=== PATIENT | female | born 1960 | race Two or more races ===

== ENCOUNTER 2020-03-03 03:28 | Inpatient (IN) | payer OTHER ==
[2020-03-03] MEDS ORDERED: ACETAMINOPHEN 325 MG TABLET PO ONE (05:03)
[2020-03-03 05:48] LABS: ABSOLUTE LYMPHOCYTES (AUTO) 1.1 10^3/uL (0.5-4.7); ABSOLUTE MONOCYTES (AUTO) 0.2 10^3/uL (0.1-1.4); ABSOLUTE NEUT (AUTO) 2.9 10^3/uL (1.7-8.2); APPEARANCE,URINE CLEAR; BASOPHILS % (AUTO) 0.5 % (0-2); BILIRUBIN,URINE NEGATIVE (NEGATIVE); COLOR,URINE YELLOW; GLUCOSE, URINE >=500 mg/dL (NEGATIVE); HEMATOCRIT 40.9 % (36.0-47.0); HEMOGLOBIN 13.5 g/dL (12.0-15.5); KETONES,URINE TRACE mg/dL (NEGATIVE); LEUKOCYTE ESTERASE,URINE NEGATIVE (NEGATIVE); LYMPHOCYTES % (AUTO) 26.7 % (13-45); MEAN CORPUSCULAR HEMOGLOBIN 29.5 pg (27.0-33.4); MEAN CORPUSCULAR HGB CONC 33.1 g/dL (32.0-36.0); MEAN CORPUSCULAR VOLUME 89 fl (80-97); MONOCYTES % (AUTO) 4.1 % (3-13); NITRITE,URINE NEGATIVE (NEGATIVE); PLATELET COUNT 211 10^3/uL (150-450); PROTEIN,URINE 100 mg/dL (NEGATIVE); RED BLOOD COUNT 4.58 10^6/uL (3.72-5.28); SEGMENTED NEUTROPHILS % (AUTO) 68.7 % (42-78); TOTAL CELLS COUNTED % (AUTO) 100 %; URINE SPECIFIC GRAVITY 1.032; UROBILINOGEN,URINE NEGATIVE mg/dL (<2.0); WHITE BLOOD COUNT 4.2 10^3/uL (4.0-10.5)
[2020-03-03 06:08] LABS: ALBUMIN 4.5 g/dL (3.5-5.0); ALKALINE PHOSPHATASE 125 U/L (38-126); ANION GAP 16 (5-19); ASPARTATE AMINO TRANSFERASE 35 U/L (14-36); BILIRUBIN,DIRECT 0.2 mg/dL (0.0-0.4); BILIRUBIN,TOTAL 0.4 mg/dL (0.2-1.3); BLOOD UREA NITROGEN 14 mg/dL (7-20); CALCIUM 10.1 mg/dL (8.4-10.2); CARBON DIOXIDE 26 mmol/L (22-30); CHLORIDE 87 mmol/L (98-107); POTASSIUM 4.7 mmol/L (3.6-5.0); TOTAL PROTEIN 8.1 g/dL (6.3-8.2)
[2020-03-03 06:26] LABS: GLUCOSE 454 mg/dL (75-110)
[2020-03-03] MEDS ORDERED: NORMAL SALINE 500 ML IV ONE (10:22)
[2020-03-03] MEDS ORDERED: INSULIN REG, HUMAN 100 UNIT/ML 3 ML VIAL (PYX) IV ONE (10:31)
--- NOTE | 2020-03-03 10:38 | ER Document Report ---
Entered by JESUS EM SCRIBE 03/03/20 0947 Acting as scribe for:SARAHI WILLIS MD ED General - General Chief Complaint: Pain All Over Stated Complaint: BODY ACHES Mode of Arrival: Ambulatory Information source: Patient Notes: This 60 year old female patient with a history of type 2 diabetes mellitus presents to the ED today with complaints of elevated blood glucose readings since 02/28/2020. Patient states that she has been compliant with her Metformin, but she hasn't been following a diabetic diet. She reports a headache and back pain. Denies fever, chills, unexplained weight loss, blurred vision, sore throat, cough, nausea, vomiting, abdominal pain, sick contacts, or known COVID exposure. Patient's O2 saturation via room air on the monitor was 90% and when asked if she was short of breath, patient states "I might be and I just don't know it." TRAVEL OUTSIDE OF THE [place] IN LAST 30 DAYS: No - Related Data Allergies/Adverse Reactions: No Known Allergies Allergy (Verified 01/24/15 19:39) Home Medications: thyroid med, diabetic med, arthritis Past Medical History - General Information source: Patient - Social History Smoking Status: Never Smoker Cigarette use (# per day): No Chew tobacco use (# tins/day): No Smoking Education Provided: No Frequency of alcohol use: None Drug Abuse: None Lives with: Alone Family History: Reviewed & Not Pertinent Patient has suicidal ideation: No Patient has homicidal ideation: No - Past Medical History Cardiac Medical History: Reports: Hx Hypertension, Hx Heart Murmur Endocrine Medical History: Reports: Hx Diabetes Mellitus Type 2, Hx Hy pothyroidism Past Surgical History: Reports: None - Immunizations Hx Diphtheria, Pertussis, Tetanus Vaccination: Yes Review of Systems - Review of Systems Constitutional: See HPI, Other - Elevated BGL. denies: Chills, Fever, Weight loss EENT: See HPI. denies: Blurred vision, Throat pain Cardiovascular: No symptoms reported Respiratory: See HPI. denies: Cough Gastrointestinal: See HPI. denies: Abdominal pain, Nausea, Vomiting Genitourinary: No symptoms reported Female Genitourinary: No symptoms reported Musculoskeletal: See HPI, Back pain Skin: No symptoms reported Hematologic/Lymphatic: No symptoms reported Neurological/Psychological: See HPI, Headaches -: Yes All other systems reviewed and negative Physical Exam - Vital signs Vitals: Temp Pulse Resp BP Pulse Ox 98.4 F 106 H 18 149/84 H 96 03/03/20 03:48 03/03/20 03:48 03/03/20 03:48 03/03/20 03:48 03/03/20 03:48 - General General appearance: Alert In distress: None - HEENT Head: Normocephalic, Atraumatic Eyes: Normal Pupils: PERRL Neck: Normal, Supple - Respiratory Respiratory status: Other - 90% on Room air Breath sounds: Decreased air movement - Diminished breath sounds in the bases, Rales - Dry rales in the bases bilaterally. No: Wheezing - Cardiovascular Rhythm: Regular Heart sounds: Normal auscultation, S1 appreciated, S2 appreciated Murmur: No Friction rub: No Gallop: None auscultated Normal capillary refill: No - Cap refill is delayed, about x3 seconds - Abdominal Inspection: Normal Distension: Distended - Slightly Bowel sounds: Normal Tenderness: Nontender - Abdomen soft Organomegaly: No organomegaly - Back Back: Normal, Nontender - Extremities General upper extremity: Normal inspection General lower extremity: Normal inspection. No: Edema - Neurological Neuro grossly intact: Yes Orientation: AAOx4 [place] Coma Scale Eye Opening: Spontaneous [place] Coma Scale Verbal: Oriented [place] Coma Scale Motor: Obeys Commands [place] Coma Scale Total: 15 - Psychological Associated symptoms: Normal affect, Normal mood - Skin Skin Temperature: Warm Skin Moisture: Dry Skin Color: Normal Course - Re-evaluation Re-evalutation: 03/04/20 15:32 Chart documentation based on yesterday's exam patient resting comfortably. Denies any chest pain requiring O2 support to keep her oxygen saturation above 9091. - Vital Signs Vital signs: Temp Pulse Resp BP Pulse Ox 98.8 F 97 21 H 147/75 H 94 03/04/20 11:36 03/04/20 11:36 03/04/20 11:36 03/04/20 11:36 03/04/20 11:36 03/04/20 15:33 Vital signs stable - Laboratory Result Diagrams: 03/04/20 05:15 03/04/20 05:15 Laboratory results interpreted by me: 03/03/20 03/03/20 03/03/20 05:16 05:16 05:16 ABG pO2 Sodium 129.2 L Chloride 87 L Glucose 454 H* POC Glucose Ferritin 539.00 H Lactate Dehydrogenase C-Reactive Protein 76.4 H Urine Protein 100 H Urine Glucose (UA) >=500 H Urine Ketones TRACE H 03/03/20 03/03/20 03/03/20 10:28 12:05 12:05 ABG pO2 Sodium Chloride Glucose POC Glucose 411 H* 323 H Ferritin Lactate Dehydrogenase 309 H C-Reactive Protein Urine Protein Urine Glucose (UA) Urine Ketones 03/03/20 13:51 ABG pO2 73.1 L Sodium Chloride Glucose POC Glucose Ferritin Lactate Dehydrogenase C-Reactive Protein Urine Protein Urine Glucose (UA) Urine Ketones 03/04/20 15:33 Laboratories essentially within normal limits except blood sugar elevation to 411. Patient had a low sodium at 129. Other markers that sometimes are elevated with with COVID-19 include a ferritin level of 539 C-reactive protein is 76+ - Diagnostic Test Radiology reviewed: Image reviewed, Reports reviewed Radiology results interpreted by me: 03/04/20 15:34 Chest X-Ray 03/03/20 10:19 IMPRESSION: Probable mild vascular congestion although this could represent interstitial pneumonitis. Chest/Abdomen CTA 03/03/20 11:10 IMPRESSION: Diffuse bilateral peripheral alveolar airspace disease suspicious for viral pneumonia as described above. No pulmonary emboli. Chest x-ray shows vascular congestive markings otherwise interstitial pneumo nitis. Chest abdomen CTA shows diffuse bilateral peripheral alveolar airspace disease suspicious for viral pneumonia as described above no pulmonary emboli noted. - EKG Interpretation by Me Additional EKG results interpreted by me: 03/04/20 15:36 Twelve-lead EKG shows normal sinus rhythm rate of 96 left atrial abnormality noted along with left ventricular hypertrophy. Also Q waves noted secondary to left ventricular hypertrophy. Intervals DE QRS and QT interval all within normal limits left axis deviation. No evidence for any acute STEMI. 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
--- NOTE | 2020-03-03 10:52 | RADIOLOGY REPORT (SQ) ---
EXAM DESCRIPTION: CHEST SINGLE VIEW IMAGES COMPLETED DATE/TIME: 03/03/2020 10:41 am REASON FOR STUDY: sobr/low O2 sat COMPARISON: 06/15/2015 EXAM PARAMETERS: NUMBER OF VIEWS: One view. TECHNIQUE: Single frontal radiographic view of the chest acquired. RADIATION DOSE: NA LIMITATIONS: None. FINDINGS: LUNGS AND PLEURA: Bilateral interstitial airspace disease new from prior study. Either ed loulou or pneumonitis. No definite effusions. MEDIASTINUM AND HILAR STRUCTURES: No masses. Contour normal. HEART AND VASCULAR STRUCTURES: Heart size is stable mild central vascular prominence. BONES: No acute findings. HARDWARE: None in the chest. OTHER: No other significant finding. IMPRESSION: Probable mild vascular congestion although this could represent interstitial pneumonitis . TECHNICAL DOCUMENTATION: JOB ID: [id number] 2010 [employer]- All Rights Reserved Reading location - IP/workstation name: [email or web address]
[2020-03-03 11:01] LABS: TROPONIN I 0.016 ng/mL
[2020-03-03 11:51] LABS: C-REACTIVE PROTEIN 76.4 mg/L (<10.0)
[2020-03-03] MEDS ORDERED: MORPHINE SULFATE 10 MG/ML INJ IV ONE (13:14)
[2020-03-03] MEDS ORDERED: ONDANSETRON HCL INJ/PF 4 MG/2 ML SDV IV ONE (13:15)
--- NOTE | 2020-03-03 13:26 | RADIOLOGY REPORT (SQ) ---
EXAM DESCRIPTION: CTA CHEST IMAGES COMPLETED DATE/TIME: 03/03/2020 1:12 pm REASON FOR STUDY: low 02 sats COMPARISON: None. TECHNIQUE: CT scan of the chest performed using helical scanning technique with dynamic intravenous contrast injection. Images reviewed with lung, soft tissue and bone windows. Reconstructed coronal and sagittal MPR images reviewed. Additional 3 dimensional post-processing performed to develop Maximal Intensity Projection images (OR P). All images stored on PACS. All CT scanners at this facility use dose modulation, iterative reconstruction, and/or weight based d osing when appropriate to reduce radiation dose to as low as reasonably achievable (ALARA). [facility]: Dose Right [facility]: CareDose [facility]: Dose Right [facility]: Teradose 4D [facility]: BlackDuck CONTRAST TYPE AND DOSE: contrast/concentration: Isovue 350.00 mmol/ml; Total Contrast Delivered: 63. 0 ml; Total Saline Delivered: 70.0 ml Contrast bolus adequate for pulmonary arteries and aorta. RENAL FUNCTION: BUN 14, creatinine 0.66 RADIATION DOSE: CT Rad equipment meets quality standard of care and radiation dose reduction techniq ues were employed. CTDIvol: 9.9 - 19.3 mGy. DLP: 672 mGy-cm. . LIMITATIONS: None. FINDINGS: LUNGS AND PLEURA: Patchy bilateral mainly peripheral airspace disease suspicious for Covid 19 pneumonia. No effusions. Atypical edema or bacterial pneumonia is thought to be less likely. AORTA AND GREAT VESSELS: No aneurysm. Contrast bolus not optimized for the aorta. HEART: No pericardial effusion. No significant coronary artery calcifications. PULMONARY ARTERIES: No emboli visualized in the main pulmonary arteries or the segmental branches. HILAR AND MEDIASTINAL STRUCTURES: Small hilar nodes are present. Most likely reactive. HARDWARE: None in the chest. UPPER ABDOMEN: No significant findings. Limited exam. THYROID AND OTHER SOFT TISSUES: No masses. No adenopathy. BONES: No acute or significant finding. 3D MIPS: Confirm above findings. OTHER: No other significant finding. IMPRESSION: Diffuse bilateral peripheral alveolar airspace disease suspicious for viral pneumonia as described above. No pulmonary emboli. COMMENT: Commonly reported imaging features of COVID-19 pneumonia are present. Other processes wang ch as influenza pneumonia and organizing pneumonia, as can be seen with drug toxicity and connective tissue disease, can cause a similar imaging pattern. Quality ID # [id number]: Final reports with documentation of one or more dose reduction techniques (e.g., Au tomated exposure control, adjustment of the mA and/or kV according to patient size, use of iterative reconstruction technique) TECHNICAL DOCUMENTATION: JOB ID: [id number] 2010 [employer]- All Rights Reserved Reading location - IP/workstation name: [email or web address]
[2020-03-03 14:09] LABS: ARTERIAL BLOOD BASE EXCESS -1.4 mmol/L; ARTERIAL BLOOD H2CO3 1.19 mmol/L (1.05-1.35); ARTERIAL BLOOD HCO3 23.3 mmol/L (20-24); ARTERIAL BLOOD O2 SATURATION 94.6 % (94-98); ARTERIAL BLOOD PCO2 39.5 mmHg (35-45); ARTERIAL BLOOD PH 7.39 (7.35-7.45); ARTERIAL BLOOD PO2 73.1 mmHg (80-100); ARTERIAL BLOOD TOTAL CO2 24.5 mmol/L (21-25)
[2020-03-03 14:10] LABS: ARTERIAL BLOOD FIO2 2L
[2020-03-03] MEDS ORDERED: ONDANSETRON 4 MG TAB.RAPDIS PO PRN (16:12)
[2020-03-03] MEDS ORDERED: GLUCAGON,HUMAN RECOMB 1 MG INJ IM PRN (16:12)
[2020-03-03] MEDS ORDERED: ACETAMINOPHEN 325 MG TABLET PO PRN (16:12)
[2020-03-03] MEDS ORDERED: IPRATROPIUM/ALBUTEROL 0.5-2.5 MG/3 ML AMPUL NEB PRN (16:12)
[2020-03-03] MEDS ORDERED: DEXTROSE 40% GEL 15 GM TUBE PO PRN ×2 (16:12)
[2020-03-03] MEDS ORDERED: DEXTROSE 50%-WATER 25 GM/50 ML DISP.SYRIN IV PRN ×2 (16:12)
--- NOTE | 2020-03-03 17:01 | PDOC H&P ---
History of Present Illness Admission Date/PCP: 03/03/20 15:52 BHAVIN LI MD Patient complains of: Generalized body ache History of Present Illness: RUDY PEPPER is a 60 year old female, past medical history of diabetes, high blood pressure, hypothyroidism, who came to the ED today due to generalized body ache. Symptoms started about 2 to 3 days prior to admission with generalized body ache. She denied any chest pain, shortness of breath, palpitations. No loss of sense of smell and taste. Minimal cough. Persistence of generalized body ache prompted consult. In the emergency room she was noted to be saturating to 91% on room air and drops to below 88% with ambulation. CBC was unremarkable, CMP showed a sodium of 129 glucose of 454, ferritin 539 which is high, CRP 76.4 which is high, troponin 0.0 16. EKG sinus rhythm no ST elevation. Chest CT showed diffuse bilateral peripheral alveolar airspace disease suspicious for viral pneumonia, no pulmonary emboli. Patient was given IV fluids, dexamethasone, antibiotics in the ED and hospitalist service was called for admission and further management. Past Medical History Cardiac Medical History: Reports: Hypertension, Heart Murmur Pulmonary Medical History: Reports: None EENT Medical History: Reports: None Neurological Medical History: Reports: None Endocrine Medical History: Reports: Diabetes Mellitus Type 2, Hypothyroidism Renal/ Medical History: Reports: None Malignancy Medical History: Reports: None GI Medical History: Reports: None Musculoskeltal Medical History: Reports: None Skin Medical History: Reports: None Psychiatric Medical History: Reports: None Traumatic Medical History: Reports: None Infectious Medical History: Reports: None Past Surgical History Past Surgical History: Reports: None Social History Lives with: Alone Smoking Status: Never Smoker Drugs: None Family History Family History: Reviewed & Not Pertinent Parental Family History Reviewed: Yes Children Family History Reviewed: Yes Sibling(s) Family History Reviewed.: Yes Medication/Allergy Allergies/Adverse Reactions: No Known Allergies Allergy (Verified 01/24/15 19:39) Review of Systems Constitutional: PRESENT: fatigue, weakness Gastrointestinal: ABSENT: abdominal pain, diarrhea Genitourinary: ABSENT: difficulty urinating Neurological: ABSENT: focal weakness Endocrine: ABSENT: heat intolerance Physical Exam Vital Signs: Temp Pulse Resp BP Pulse Ox 98.8 F 103 H 26 H 145/81 H 95 03/03/20 06:39 03/03/20 06:39 03/03/20 14:01 03/03/20 14:00 03/03/20 14:01 Intake & Output 03/02/20 03/03/20 03/04/20 06:59 06:59 06:59 Intake Total 500 Balance 500 Weight 86.5 kg General appearance: PRESENT: cooperative, mild distress Head exam: PRESENT: atraumatic, normocephalic Eye exam: PRESENT: EOMI, PERRLA Mouth exam: PRESENT: moist Neck exam: PRESENT: full ROM Respiratory exam: PRESENT: crackles, symmetrical, unlabored Cardiovascular exam: PRESENT: RRR, +S1, +S2 Pulses: PRESENT: +2 pedal pulses bilateral GI/Abdominal exam: PRESENT: normal bowel sounds, soft. ABSENT: rebound, tenderness Extremities exam: PRESENT: full ROM Musculoskeletal exam: PRESENT: full ROM Neurological exam: PRESENT: alert, awake, oriented to person, oriented to place, oriented to time, oriented to situation Results Laboratory Results: 03/03/20 05:16 03/03/20 05:16 03/03/20 03/03/20 03/03/20 05:16 05:16 05:16 WBC 4.2 RBC 4.58 Hgb 13.5 Hct 40.9 MCV 89 MCH 29.5 MCHC 33.1 RDW 14.0 Plt Count 211 Seg Neutrophils % 68.7 Carbonic Acid HCO3/H2CO3 Ratio ABG pH ABG pCO2 ABG pO2 ABG HCO3 ABG O2 Saturation ABG Base Excess FiO2 Sodium 129.2 L Potassium 4.7 Chloride 87 L Carbon Dioxide 26 Anion Gap 16 BUN 14 Creatinine 0.66 Est GFR ( Amer) > 60 Glucose 454 H* Calcium 10.1 Ferritin Total Bilirubin 0.4 AST 35 Alkaline Phosphatase 125 C-Reactive Protein Total Protein 8.1 Albumin 4.5 Lipase 48.3 Urine Color YELLOW Urine Appearance CLEAR Urine pH 5.0 Ur Specific [place] 1.032 Urine Protein 100 H Urine Glucose (UA) >=500 H Urine Ketones TRACE H Urine Blood NEGATIVE Urine Nitrite NEGATIVE Ur Leukocyte Esterase NEGATIVE Urine WBC (Auto) 0 Urine RBC (Auto) 0 03/03/20 03/03/20 03/03/20 05:16 11:53 13:51 WBC RBC Hgb Hct MCV MCH MCHC RDW Plt Count Seg Neutrophils % Carbonic Acid Cancelled 1.19 HCO3/H2CO3 Ratio Cancelled 19:1 ABG pH Cancelled 7.39 ABG pCO2 Cancelled 39.5 ABG pO2 Cancelled 73.1 L ABG HCO3 Cancelled 23.3 ABG O2 Saturation Cancelled 94.6 ABG Base Excess Cancelled -1.4 FiO2 Cancelled 2L Sodium Potassium Chloride Carbon Dioxide Anion Gap BUN Creatinine Est GFR ( Amer) Glucose Calcium Ferritin 539.00 H Total Bilirubin AST Alkaline Phosphatase C-Reactive Protein 76.4 H Total Protein Albumin Lipase Urine Color Urine Appearance Urine pH Ur Specific [place] Urine Protein Urine Glucose (UA) Urine Ketones Urine Blood Urine Nitrite Ur Leukocyte Esterase Urine WBC (Auto) Urine RBC (Auto) 03/03/20 05:16 Troponin I 0.016 NT-Pro-B Natriuret Pep 38 Impressions: Chest X-Ray 03/03/20 10:19 IMPRESSION: Probable mild vascular congestion although this could represent interstitial pneumonitis. Chest/Abdomen CTA 03/03/20 11:10 IMPRESSION: Diffuse bilateral peripheral alveolar airspace disease suspicious for viral pneumonia as described above. No pulmonary emboli. 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 -No polyuria no polydipsia no polyphagia -Received 10 units of regular insulin in the ED -Trace ketones in urine -Normal anion gap -Started on Lantus and sliding scale insulin -Accu-Cheks -Glycemia protocol -Awaiting A1c. She will likely need another medication besides Metformin on discharge (2) Acute respiratory failure with hypoxia Is this a current diagnosis for this admission?: Yes Plan: -Noted to be saturating 91% on room air in the emergency room -Chest CT showing Bi bilateral groundglass opacities consistent with viral pneumonia -Covid test pending -Continue O2 support -DuoNebs as needed (3) Suspected COVID-19 virus infection Is this a current diagnosis for this admission?: Yes Plan: -Patient came in with generalized body ache - CTA chest showed bilateral groundglass opacities suspicious for Covid pneumonia -Also noted to be hypoxic in the ED -Awaiting Covid test -Empiric antibiotics for bacterial pneumonia -DuoNebs as needed -Vitamin C, vitamin D, zinc -No indication for remdesivir or convalescent plasma yet (4) HTN (hypertension) Qualifiers: Hypertension type: essential hypertension Qualified Code(s): I10 - Essential (primary) hypertension Is this a current diagnosis for this admission?: Yes Plan: -BP145/81 - resumed lisinopril (5) Hypothyroidism Qualifiers: Hypothyroidism type: unspecified Qualified Code(s): E03.9 - Hypothyroidism, unspecified Is this a current diagnosis for this admission?: Yes Plan: - resumed levothyroxine (6) HLD (hyperlipidemia) Qualifiers: Hyperlipidemia type: unspecified Qualified Code(s): E78.5 - Hyperlipidemia, unspecified Is this a current diagnosis for this admission?: Yes Plan: - resumed lipitor - Time Time Spent with patient: 25-34 minutes Medications reviewed and adjusted accordingly: Yes Anticipated Discharge Disposition: Home, Self Care Anticipated Discharge Timeframe: within 48 hours
[2020-03-03] MEDS: ASCORBIC ACID 500 MG TABLET PO SCH (18:14)
[2020-03-03 19:26] LABS: C-REACTIVE PROTEIN 75.3 mg/L (<10.0)
[2020-03-03] MEDS ORDERED: INSULIN GLARGINE,HUM.REC.ANLOG 1,000 UNIT/10 ML VIAL SUBCUT SCH (22:00)
[2020-03-03] MEDS ORDERED: INSULIN GLARGINE,HUM.REC.ANLOG 1,000 UNIT/10 ML VIAL (PYX) SUBCUT ONE (22:13)
[2020-03-03] MEDS: INSULIN LISPRO 100 UNIT/ML 3 ML VIAL SUBCUT SCH (22:16)
[2020-03-03] MEDS: FAMOTIDINE 20 MG TABLET PO SCH (22:16)
[2020-03-03] MEDS: MORPHINE SULFATE 10 MG/ML INJ IV PRN (22:17)
[2020-03-03] MEDS: HEPARIN SOD (PORCINE) 5,000 UNIT/ML 1 ML VIAL SUBCUT SCH (22:18)
[2020-03-03] MEDS: NORMAL SALINE 1000 ML 1,000 ML IV PRN (23:14)
[2020-03-04] MEDS: HEPARIN SOD (PORCINE) 5,000 UNIT/ML 1 ML VIAL SUBCUT SCH ×3 (05:03→21:36)
[2020-03-04] MEDS: LEVOTHYROXINE SODIUM 0.1 MG TABLET PO SCH (05:03)
[2020-03-04 05:46] LABS: ABSOLUTE LYMPHOCYTES (AUTO) 1.7 10^3/uL (0.5-4.7); ABSOLUTE MONOCYTES (AUTO) 0.2 10^3/uL (0.1-1.4); ABSOLUTE NEUT (AUTO) 2.4 10^3/uL (1.7-8.2); BASOPHILS % (AUTO) 0.5 % (0-2); EOSINOPHILS % (AUTO) 0.2 % (0-6); HEMATOCRIT 38.2 % (36.0-47.0); HEMOGLOBIN 12.8 g/dL (12.0-15.5); LYMPHOCYTES % (AUTO) 39.7 % (13-45); MEAN CORPUSCULAR HEMOGLOBIN 29.6 pg (27.0-33.4); MEAN CORPUSCULAR HGB CONC 33.5 g/dL (32.0-36.0); MEAN CORPUSCULAR VOLUME 89 fl (80-97); MONOCYTES % (AUTO) 5.7 % (3-13); PLATELET COUNT 200 10^3/uL (150-450); RED BLOOD COUNT 4.31 10^6/uL (3.72-5.28); RED CELL DISTRIBUTION WIDTH 13.8 % (11.5-14.0); SEGMENTED NEUTROPHILS % (AUTO) 53.9 % (42-78); TOTAL CELLS COUNTED % (AUTO) 100 %; WHITE BLOOD COUNT 4.4 10^3/uL (4.0-10.5)
[2020-03-04 06:16] LABS: ALBUMIN 3.9 g/dL (3.5-5.0); ALKALINE PHOSPHATASE 110 U/L (38-126); ANION GAP 11 (5-19); ASPARTATE AMINO TRANSFERASE 37 U/L (14-36); BILIRUBIN,DIRECT 0.1 mg/dL (0.0-0.4); BILIRUBIN,TOTAL 0.3 mg/dL (0.2-1.3); BLOOD UREA NITROGEN 11 mg/dL (7-20); CALCIUM 9.1 mg/dL (8.4-10.2); CARBON DIOXIDE 25 mmol/L (22-30); CHLORIDE 94 mmol/L (98-107); GLUCOSE 254 mg/dL (75-110); POTASSIUM 4.3 mmol/L (3.6-5.0); TOTAL PROTEIN 7.2 g/dL (6.3-8.2)
[2020-03-04 08:03] LABS: A TYPE INFLUENZA AG NEGATIVE (NEGATIVE); B INFLUENZA AG NEGATIVE (NEGATIVE)
--- NOTE | 2020-03-04 09:50 | EKG REPORT ---
SEVERITY:- ABNORMAL ECG - SINUS RHYTHM PROBABLE LEFT ATRIAL ABNORMALITY PROBABLE LEFT VENTRICULAR HYPERTROPHY ANTERIOR Q WAVES, POSSIBLY DUE TO LVH : Confirmed by: Annette Barajas 04-Mar-2020 09:49:19
[2020-03-04] MEDS: FAMOTIDINE 20 MG TABLET PO SCH ×2 (09:53→21:36)
[2020-03-04] MEDS: AZITHROMYCIN 250 MG TABLET PO SCH (09:54)
[2020-03-04] MEDS: ASCORBIC ACID 500 MG TABLET PO SCH ×2 (09:54→17:20)
[2020-03-04] MEDS: CHOLECALCIFEROL (D3) 1,000 UNIT (25 MCG) TABLET PO SCH (09:54)
[2020-03-04] MEDS: ZINC SULFATE 220 MG CAPSULE PO SCH (09:54)
[2020-03-04] MEDS: LISINOPRIL 10 MG TABLET PO SCH (09:55)
[2020-03-04] MEDS: INSULIN LISPRO 100 UNIT/ML 3 ML VIAL SUBCUT SCH ×7 (09:55→21:36)
[2020-03-04] MEDS: CEFTRIAXONE 2 GM/D5W RTU 2 GM/50 ML RTUPB IV SCH (09:58)
[2020-03-04] MEDS ORDERED: DEXAMETHASONE SOD PHOS INJ 10 MG/1 ML VIAL IV SCH (10:00)
[2020-03-04] MEDS: NORMAL SALINE 1000 ML 1,000 ML IV PRN ×2 (10:00→20:48)
[2020-03-04] MEDS: DEXAMETHASONE SOD PHOSPHATE INJ 4 MG/1 ML VIAL IV SCH (12:08)
[2020-03-04] MEDS: INSULIN GLARGINE,HUM.REC.ANLOG 1,000 UNIT/10 ML VIAL SUBCUT SCH ×2 (12:09→21:35)
[2020-03-04] MEDS: MORPHINE SULFATE 10 MG/ML INJ IV PRN (15:13)
--- NOTE | 2020-03-04 15:31 | PDOC PROGRESS REPORT ---
Subjective Date:: 03/04/20 Subjective:: RUDY PEPPER is a 60 year old female, past medical history of diabetes, high blood pressure, hypothyroidism, who came to the ED today due to generalized body ache. Symptoms started about 2 to 3 days prior to admission with generalized body ache. She denied any chest pain, shortness of breath, palpitations. No loss of sense of smell and taste. Minimal cough. Persistence of generalized body ache prompted consult. In the emergency room she was noted to be saturating to 91% on room air and drops to below 88% with ambulation. CBC was unremarkable, CMP showed a sodium of 129 glucose of 454, ferritin 539 which is high, CRP 76.4 which is high, troponin 0.0 16. EKG sinus rhythm no ST elevation. Chest CT showed diffuse bilateral peripheral alveolar airspace disease suspicious for viral pneumonia, no pulmonary emboli. Patient was given IV fluids, dexamethasone, antibiotics in the ED and hospitalist service was called for admission and further management. D2 hospital stay. Patient was seen and examined at bedside. She reports she feels much better today compared to yesterday, has less body aches. She denies feeling short of breath, minimal cough, no chest pain, no nausea or vomiting. A1c noted to be 14%. I have increased her Lantus to twice daily and also started her on a with meals insulin on top of sliding scale. She is eating and drinking fine. She would prefer to get discharged tomorrow once the Covid result is back. Reason For Visit: UNCONTROLLED DIABETES,SUSPECTED COVID Physical Exam Vital Signs: Temp Pulse Resp BP Pulse Ox 98.8 F 97 21 H 147/75 H 94 03/04/20 11:36 03/04/20 11:36 03/04/20 11:36 03/04/20 11:36 03/04/20 11:36 Intake & Output 03/03/20 03/04/20 03/05/20 06:59 06:59 06:59 Intake Total 500 1170 Balance 500 1170 Weight 86.5 kg 84.3 kg General appearance: PRESENT: no acute distress, cooperative Head exam: PRESENT: atraumatic, normocephalic Eye exam: PRESENT: EOMI, PERRLA Mouth exam: PRESENT: moist Neck exam: PRESENT: full ROM Respiratory exam: PRESENT: clear to auscultation [place], symmetrical, unlabored Cardiovascular exam: PRESENT: RRR, +S1, +S2 GI/Abdominal exam: PRESENT: normal bowel sounds, soft. ABSENT: tenderness Extremities exam: PRESENT: full ROM Musculoskeletal exam: PRESENT: full ROM Neurological exam: PRESENT: alert, awake, oriented to person, oriented to place, oriented to time, oriented to situation Psychiatric exam: PRESENT: normal mood Skin exam: PRESENT: normal color Results Laboratory Results: 03/04/20 05:15 03/04/20 05:15 03/03/20 03/04/20 03/04/20 18:46 05:15 05:15 WBC 4.4 RBC 4.31 Hgb 12.8 Hct 38.2 MCV 89 MCH 29.6 MCHC 33.5 RDW 13.8 Plt Count 200 Seg Neutrophils % 53.9 Sodium 130.3 L Potassium 4.3 Chloride 94 L Carbon Dioxide 25 Anion Gap 11 BUN 11 Creatinine 0.57 Est GFR ( Amer) > 60 Glucose 254 H Calcium 9.1 Ferritin 628.00 H Total Bilirubin 0.3 AST 37 H Alkaline Phosphatase 110 C-Reactive Protein 75.3 H Total Protein 7.2 Albumin 3.9 03/03/20 12:05 Blood Blood Culture (PCR) - Final Staphylococcus Species 03/03/20 05:16 Troponin I 0.016 NT-Pro-B Natriuret Pep 38 Impressions: Chest X-Ray 03/03/20 10:19 IMPRESSION: Probable mild vascular congestion although this could represent interstitial pneumonitis. Chest/Abdomen CTA 03/03/20 11:10 IMPRESSION: Diffuse bilateral peripheral alveolar airspace disease suspicious for viral pneumonia as described above. No pulmonary emboli. 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 -No polyuria no polydipsia no polyphagia -Received 10 units of regular insulin in the ED -Trace ketones in urine - A1C 14 -Normal anion gap -Started on Lantus, with meals and sliding scale insulin -Accu-Cheks -Glycemia protocol -She will be discharged on Lantus. (2) Acute respiratory failure with hypoxia Is this a current diagnosis for this admission?: Yes Plan: -Noted to be saturating 91% on room air in the emergency room -Chest CT showing Bi bilateral groundglass opacities consistent with viral pneumonia -Covid test pending -wean O2 support as tolerated -DuoNebs as needed (3) Suspected COVID-19 virus infection Is this a current diagnosis for this admission?: Yes Plan: -Patient came in with generalized body ache - CTA chest showed bilateral groundglass opacities suspicious for Covid pneumonia -Also noted to be hypoxic in the ED -Awaiting Covid test -Empiric antibiotics for bacterial pneumonia -DuoNebs as needed -Vitamin C, vitamin D, zinc -No indication for remdesivir or convalescent plasma yet (4) HTN (hypertension) Qualifiers: Hypertension type: essential hypertension Qualified Code(s): I10 - Essential (primary) hypertension Is this a current diagnosis for this admission?: Yes Plan: -BP145/81 - resumed lisinopril (5) Hypothyroidism Qualifiers: Hypothyroidism type: unspecified Qualified Code(s): E03.9 - Hypothyroidism, unspecified Is this a current diagnosis for this admission?: Yes Plan: - resumed levothyroxine (6) HLD (hyperlipidemia) Qualifiers: Hyperlipidemia type: unspecified Qualified Code(s): E78.5 - Hyperlipidemia, unspecified Is this a current diagnosis for this admission?: Yes Plan: - resumed lipitor - Time Time Spent with patient: 25-34 minutes Medications reviewed and adjusted accordingly: Yes Anticipated Discharge Disposition: Home, Self Care Anticipated Discharge Timeframe: within 48 hours
[2020-03-05] MEDS: MORPHINE SULFATE 10 MG/ML INJ IV PRN ×2 (00:20→23:31)
[2020-03-05] MEDS: HEPARIN SOD (PORCINE) 5,000 UNIT/ML 1 ML VIAL SUBCUT SCH ×3 (06:26→21:57)
[2020-03-05] MEDS: LEVOTHYROXINE SODIUM 0.1 MG TABLET PO SCH (06:27)
[2020-03-05] MEDS: INSULIN LISPRO 100 UNIT/ML 3 ML VIAL SUBCUT SCH ×7 (08:26→21:58)
[2020-03-05] MEDS: CEFTRIAXONE 2 GM/D5W RTU 2 GM/50 ML RTUPB IV SCH (09:45)
[2020-03-05] MEDS: DEXAMETHASONE SOD PHOSPHATE INJ 4 MG/1 ML VIAL IV SCH ×2 (09:46→17:34)
[2020-03-05] MEDS: ASCORBIC ACID 500 MG TABLET PO SCH ×2 (09:46→17:33)
[2020-03-05] MEDS: FAMOTIDINE 20 MG TABLET PO SCH ×2 (09:46→21:58)
[2020-03-05] MEDS: INSULIN GLARGINE,HUM.REC.ANLOG 1,000 UNIT/10 ML VIAL SUBCUT SCH ×2 (09:46→21:57)
[2020-03-05] MEDS: LISINOPRIL 10 MG TABLET PO SCH (09:46)
[2020-03-05] MEDS: AZITHROMYCIN 250 MG TABLET PO SCH (09:46)
[2020-03-05] MEDS: CHOLECALCIFEROL (D3) 1,000 UNIT (25 MCG) TABLET PO SCH (09:47)
[2020-03-05] MEDS: ZINC SULFATE 220 MG CAPSULE PO SCH (10:03)
[2020-03-05] MEDS: NORMAL SALINE 1000 ML 1,000 ML IV PRN ×2 (11:29→18:09)
--- NOTE | 2020-03-05 15:26 | PDOC PROGRESS REPORT ---
Subjective Date:: 03/05/20 Subjective:: RUDY PEPPER is a 60 year old female, past medical history of diabetes, high blood pressure, hypothyroidism, who came to the ED today due to generalized body ache. Symptoms started about 2 to 3 days prior to admission with generalized body ache. She denied any chest pain, shortness of breath, palpitations. No loss of sense of smell and taste. Minimal cough. Persistence of generalized body ache prompted consult. In the emergency room she was noted to be saturating to 91% on room air and drops to below 88% with ambulation. CBC was unremarkable, CMP showed a sodium of 129 glucose of 454, ferritin 539 which is high, CRP 76.4 which is high, troponin 0.0 16. EKG sinus rhythm no ST elevation. Chest CT showed diffuse bilateral peripheral alveolar airspace disease suspicious for viral pneumonia, no pulmonary emboli. Patient was given IV fluids, dexamethasone, antibiotics in the ED and hospitalist service was called for admission and further management. D2 hospital stay. Patient was seen and examined at bedside. She reports she feels much better today compared to yesterday, has less body aches. She denies feeling short of breath, minimal cough, no chest pain, no nausea or vomiting. A1c noted to be 14%. I have increased her Lantus to twice daily and also started her on a with meals insulin on top of sliding scale. She is eating and drinking fine. She would prefer to get discharged tomorrow once the Covid result is back. D3 hospital stay. Patient was seen and examined at bedside. No new complains but feels sob when she walks. I tried taking her off O2 but she drops to 85% without it. COVID test pending. On abx and ceftriaxone. Otherwise she denies any chest pain, minimal cough. Reason For Visit: HYPOXIC RESPIRATORY FAILURE DUE TO PROBABLE COVID Physical Exam Vital Signs: Temp Pulse Resp BP Pulse Ox 98.5 F 77 18 153/84 H 92 03/05/20 11:32 03/05/20 14:00 03/05/20 11:32 03/05/20 11:32 03/05/20 11:32 Intake & Output 03/04/20 03/05/20 03/06/20 06:59 06:59 06:59 Intake Total 500 3450 1170 Balance 500 3450 1170 Weight 84.3 kg 87.7 kg General appearance: PRESENT: cooperative, mild distress Head exam: PRESENT: atraumatic, normocephalic Eye exam: PRESENT: EOMI, PERRLA Mouth exam: PRESENT: moist Neck exam: PRESENT: full ROM Respiratory exam: PRESENT: clear to auscultation libertad, symmetrical, unlabored Cardiovascular exam: PRESENT: RRR, +S1, +S2 Pulses: PRESENT: +2 pedal pulses bilateral GI/Abdominal exam: PRESENT: normal bowel sounds, soft. ABSENT: rebound, tenderness Extremities exam: PRESENT: full ROM Musculoskeletal exam: PRESENT: full ROM Neurological exam: PRESENT: alert, awake, oriented to person, oriented to place, oriented to time, oriented to situation Psychiatric exam: PRESENT: normal mood Skin exam: PRESENT: normal color Results Laboratory Results: 03/04/20 05:15 03/04/20 05:15 03/03/20 12:05 Blood Blood Culture (PCR) - Final Staphylococcus Species 03/03/20 05:16 Troponin I 0.016 NT-Pro-B Natriuret Pep 38 Impressions: Chest X-Ray 03/03/20 10:19 IMPRESSION: Probable mild vascular congestion although this could represent interstitial pneumonitis. Chest/Abdomen CTA 03/03/20 11:10 IMPRESSION: Diffuse bilateral peripheral alveolar airspace disease suspicious for viral pneumonia as described above. No pulmonary emboli. Assessment and Plan - Diagnosis (1) Type 2 diabetes mellitus with hyperglycemia Qualifiers: Diabetes mellitus meterman insulin use: without meterman use Qualified Code(s): E11.65 - Type 2 diabetes mellitus with hyperglycemia Is this a current diagnosis for this admission?: Yes Plan: -Known diabetic on Metformin, came in due to generalized body weakness, noted to have a blood glucose of 454. -No polyuria no polydipsia no polyphagia -Received 10 units of regular insulin in the ED -Trace ketones in urine - A1C 14 -Normal anion gap -Started on Lantus, with meals insulin and sliding scale insulin -Accu-Cheks -Glycemia protocol -She will be discharged on Lantus. (2) Acute respiratory failure with hypoxia Is this a current diagnosis for this admission?: Yes Plan: -Noted to be saturating 91% on room air in the emergency room -Chest CT showing Bi bilateral groundglass opacities consistent with viral pneumonia -Covid test pending -tried to wean her off today but she drops to 85%. - wean O2 support as tolerated -DuoNebs as needed (3) Suspected COVID-19 virus infection Is this a current diagnosis for this admission?: Yes Plan: -Patient came in with generalized body ache - CTA chest showed bilateral groundglass opacities suspicious for Covid pneumonia -Also noted to be hypoxic in the ED -Awaiting Covid test -Empiric antibiotics for bacterial pneumonia -DuoNebs as needed -Vitamin C, vitamin D, zinc -No indication for remdesivir or convalescent plasma yet (4) HTN (hypertension) Qualifiers: Hypertension type: essential hypertension Qualified Code(s): I10 - Essential (primary) hypertension Is this a current diagnosis for this admission?: Yes Plan: -BP145/81 - resumed lisinopril (5) Hypothyroidism Qualifiers: Hypothyroidism type: unspecified Qualified Code(s): E03.9 - Hypothyroidism, unspecified Is this a current diagnosis for this admission?: Yes Plan: - resumed levothyroxine (6) HLD (hyperlipidemia) Qualifiers: Hyperlipidemia type: unspecified Qualified Code(s): E78.5 - Hyperlipidemia, unspecified Is this a current diagnosis for this admission?: Yes Plan: - resumed lipitor - Time Time Spent with patient: 25-34 minutes Medications reviewed and adjusted accordingly: Yes Anticipated Discharge Disposition: Home, Self Care Anticipated Discharge Timeframe: to be determined
[2020-03-05] MEDS ORDERED: PHARMACY COMMUNICATION ORDER MC PRN (17:19)
[2020-03-06] MEDS ORDERED: LISINOPRIL 10 MG TABLET PO ONE ×2 (03:07→11:15)
[2020-03-06] MEDS: HEPARIN SOD (PORCINE) 5,000 UNIT/ML 1 ML VIAL SUBCUT SCH ×3 (05:40→22:23)
[2020-03-06] MEDS: LEVOTHYROXINE SODIUM 0.1 MG TABLET PO SCH (06:12)
[2020-03-06] MEDS: MORPHINE SULFATE 10 MG/ML INJ IV PRN ×2 (06:45→22:25)
[2020-03-06] MEDS: FAMOTIDINE 20 MG TABLET PO SCH ×2 (09:34→22:24)
[2020-03-06] MEDS: ZINC SULFATE 220 MG CAPSULE PO SCH (09:35)
[2020-03-06] MEDS: CHOLECALCIFEROL (D3) 1,000 UNIT (25 MCG) TABLET PO SCH (09:35)
[2020-03-06] MEDS: INSULIN LISPRO 100 UNIT/ML 3 ML VIAL SUBCUT SCH ×8 (09:35→22:24)
[2020-03-06] MEDS: ASCORBIC ACID 500 MG TABLET PO SCH ×2 (09:35→17:36)
[2020-03-06] MEDS: AZITHROMYCIN 250 MG TABLET PO SCH (09:35)
[2020-03-06] MEDS: DEXAMETHASONE SOD PHOSPHATE INJ 4 MG/1 ML VIAL IV SCH ×2 (09:36→10:52)
[2020-03-06] MEDS: CEFTRIAXONE 2 GM/D5W RTU 2 GM/50 ML RTUPB IV SCH (09:37)
[2020-03-06] MEDS ORDERED: REMDESIVIR (EUA) 200 MG in NORMAL SALINE 250 ML IV ONE (10:00)
[2020-03-06] MEDS: INSULIN GLARGINE,HUM.REC.ANLOG 1,000 UNIT/10 ML VIAL SUBCUT SCH ×2 (11:39→22:23)
[2020-03-06 12:04] LABS: ABSOLUTE LYMPHOCYTES (AUTO) 1.2 10^3/uL (0.5-4.7); ABSOLUTE MONOCYTES (AUTO) 0.6 10^3/uL (0.1-1.4); ABSOLUTE NEUT (AUTO) 6.3 10^3/uL (1.7-8.2); BASOPHILS % (AUTO) 0.3 % (0-2); HEMATOCRIT 38.4 % (36.0-47.0); HEMOGLOBIN 13.1 g/dL (12.0-15.5); LYMPHOCYTES % (AUTO) 14.5 % (13-45); MEAN CORPUSCULAR HEMOGLOBIN 30.3 pg (27.0-33.4); MEAN CORPUSCULAR HGB CONC 34.1 g/dL (32.0-36.0); MEAN CORPUSCULAR VOLUME 89 fl (80-97); MONOCYTES % (AUTO) 7.5 % (3-13); PLATELET COUNT 347 10^3/uL (150-450); RED BLOOD COUNT 4.32 10^6/uL (3.72-5.28); SEGMENTED NEUTROPHILS % (AUTO) 77.7 % (42-78); TOTAL CELLS COUNTED % (AUTO) 100 %; WHITE BLOOD COUNT 8.1 10^3/uL (4.0-10.5)
[2020-03-06 12:21] LABS: ALBUMIN 3.8 g/dL (3.5-5.0); ALKALINE PHOSPHATASE 113 U/L (38-126); ANION GAP 10 (5-19); ASPARTATE AMINO TRANSFERASE 34 U/L (14-36); BILIRUBIN,DIRECT 0.1 mg/dL (0.0-0.4); BILIRUBIN,TOTAL 0.3 mg/dL (0.2-1.3); BLOOD UREA NITROGEN 12 mg/dL (7-20); CALCIUM 9.6 mg/dL (8.4-10.2); CARBON DIOXIDE 25 mmol/L (22-30); CHLORIDE 99 mmol/L (98-107); GLUCOSE 269 mg/dL (75-110); POTASSIUM 4.1 mmol/L (3.6-5.0); TOTAL PROTEIN 7.3 g/dL (6.3-8.2)
--- NOTE | 2020-03-06 16:14 | PDOC PROGRESS REPORT ---
Subjective Date:: 03/06/20 Subjective:: RUDY PEPPER is a 60 year old female, past medical history of diabetes, high blood pressure, hypothyroidism, who came to the ED today due to generalized body ache. Symptoms started about 2 to 3 days prior to admission with generalized body ache. She denied any chest pain, shortness of breath, palpitations. No loss of sense of smell and taste. Minimal cough. Persistence of generalized body ache prompted consult. In the emergency room she was noted to be saturating to 91% on room air and drops to below 88% with ambulation. CBC was unremarkable, CMP showed a sodium of 129 glucose of 454, ferritin 539 which is high, CRP 76.4 which is high, troponin 0.0 16. EKG sinus rhythm no ST elevation. Chest CT showed diffuse bilateral peripheral alveolar airspace disease suspicious for viral pneumonia, no pulmonary emboli. Patient was given IV fluids, dexamethasone, antibiotics in the ED and hospitalist service was called for admission and further management. D2 hospital stay. Patient was seen and examined at bedside. She reports she feels much better today compared to yesterday, has less body aches. She denies feeling short of breath, minimal cough, no chest pain, no nausea or vomiting. A1c noted to be 14%. I have increased her Lantus to twice daily and also started her on a with meals insulin on top of sliding scale. She is eating and drinking fine. She would prefer to get discharged tomorrow once the Covid result is back. D3 hospital stay. Patient was seen and examined at bedside. No new complains but feels sob when she walks. I tried taking her off O2 but she drops to 85% without it. COVID test pending. On abx and ceftriaxone. Otherwise she denies any chest pain, minimal cough. D4 hospital stay. Patient was seen and examined at bedside. Feels comfortable overall, still on 2L NC saturating 93%. She was started on remdesivir. I have increased her long acting and sliding scale and with meals insulin. She is afebrile with good appetite. I asked her if she wants me to update any of her family member regarding her hospital stay but she has asked me not to at this time because she was able to talk to them. Reason For Visit: HYPOXIC RESPIRATORY FAILURE DUE TO PROBABLE COVID Physical Exam Vital Signs: Temp Pulse Resp BP Pulse Ox 98.2 F 65 21 H 150/80 H 91 L 03/06/20 10:57 03/06/20 14:00 03/06/20 10:57 03/06/20 10:57 03/06/20 10:57 Intake & Output 03/05/20 03/06/20 03/07/20 06:59 06:59 06:59 Intake Total 3450 3647 780 Balance 3450 3647 780 Weight 87.7 kg 86.9 kg General appearance: PRESENT: no acute distress, cooperative Head exam: PRESENT: atraumatic, normocephalic Eye exam: PRESENT: EOMI, PERRLA Mouth exam: PRESENT: moist Neck exam: PRESENT: full ROM Respiratory exam: PRESENT: rales, rhonchi, symmetrical, unlabored Cardiovascular exam: PRESENT: RRR, +S1, +S2 Pulses: PRESENT: +2 pedal pulses bilateral GI/Abdominal exam: PRESENT: normal bowel sounds, soft. ABSENT: rebound, tenderness Extremities exam: PRESENT: full ROM Musculoskeletal exam: PRESENT: full ROM Neurological exam: PRESENT: alert, awake, oriented to person, oriented to place, oriented to time, oriented to situation Psychiatric exam: PRESENT: normal mood Skin exam: PRESENT: normal color Results Laboratory Results: 03/06/20 11:25 03/06/20 11:25 03/06/20 03/06/20 11:25 11:25 WBC 8.1 RBC 4.32 Hgb 13.1 Hct 38.4 MCV 89 MCH 30.3 MCHC 34.1 RDW 14.0 Plt Count 347 Seg Neutrophils % 77.7 Sodium 134.1 L Potassium 4.1 Chloride 99 Carbon Dioxide 25 Anion Gap 10 BUN 12 Creatinine 0.55 Est GFR ( Amer) > 60 Glucose 269 H Calcium 9.6 Total Bilirubin 0.3 AST 34 Alkaline Phosphatase 113 Total Protein 7.3 Albumin 3.8 03/03/20 12:05 Blood Blood Culture (PCR) - Final Staphylococcus Species 03/03/20 12:05 Blood Blood Culture - Final Staphylococcus Hominis 03/03/20 05:16 Troponin I 0.016 NT-Pro-B Natriuret Pep 38 Impressions: Chest X-Ray 03/03/20 10:19 IMPRESSION: Probable mild vascular congestion although this could represent interstitial pneumonitis. Chest/Abdomen CTA 03/03/20 11:10 IMPRESSION: Diffuse bilateral peripheral alveolar airspace disease suspicious for viral pneumonia as described above. No pulmonary emboli. Assessment and Plan - Diagnosis (1) Acute respiratory failure with hypoxia Is this a current diagnosis for this admission?: Yes Plan: -Noted to be saturating 91% on room air in the emergency room -Chest CT showing bilateral groundglass opacities consistent with viral pneumonia -Covid test POSITIVE -tried to wean her off today but she drops to 85% -wean O2 support as tolerated -DuoNebs as needed (2) Suspected COVID-19 virus infection Is this a current diagnosis for this admission?: Yes Plan: -Patient came in with generalized body ache - CTA chest showed bilateral groundglass opacities suspicious for Covid pneumonia -Also noted to be hypoxic in the ED -COVID positive - started on remdesivir -stopped antibiotics, she was briefly on rocephin and azithro -DuoNebs as needed -Vitamin C, vitamin D, zinc (3) Type 2 diabetes mellitus with hyperglycemia Qualifiers: Diabetes mellitus long term care social worker insulin use: without group home use Qualified Code(s): E11.65 - Type 2 diabetes mellitus with hyperglycemia Is this a current diagnosis for this admission?: Yes Plan: -Known diabetic on Metformin, came in due to generalized body weakness, noted to have a blood glucose of 454. -No polyuria no polydipsia no polyphagia -Received 10 units of regular insulin in the ED -Trace ketones in urine - A1C 14 -Normal anion gap -Started on Lantus, with meals insulin and sliding scale insulin -Accu-Cheks -Glycemia protocol -She would need long acting insulin at home - maternal fetal physician ordered (4) HTN (hypertension) Qualifiers: Hypertension type: essential hypertension Qualified Code(s): I10 - Essential (primary) hypertension Is this a current diagnosis for this admission?: Yes Plan: -BP145/81 - resumed lisinopril (5) Hypothyroidism Qualifiers: Hypothyroidism type: unspecified Qualified Code(s): E03.9 - Hypothyroidism, unspecified Is this a current diagnosis for this admission?: Yes Plan: - resumed levothyroxine (6) HLD (hyperlipidemia) Qualifiers: Hyperlipidemia type: unspecified Qualified Code(s): E78.5 - Hyperlipidemia, unspecified Is this a current diagnosis for this admission?: Yes Plan: - resumed lipitor - Time Time Spent with patient: 25-34 minutes Anticipated Discharge Disposition: Home, Self Care Anticipated Discharge Timeframe: TBD
[2020-03-06] MEDS ORDERED: HYDROCHLOROTHIAZIDE 12.5 MG TABLET PO SCH (22:00)
[2020-03-07] MEDS: MORPHINE SULFATE 10 MG/ML INJ IV PRN (04:43)
[2020-03-07] MEDS: LISINOPRIL 10 MG TABLET PO SCH (05:13)
[2020-03-07] MEDS: HEPARIN SOD (PORCINE) 5,000 UNIT/ML 1 ML VIAL SUBCUT SCH ×3 (05:13→22:22)
[2020-03-07] MEDS: LEVOTHYROXINE SODIUM 0.1 MG TABLET PO SCH (05:13)
[2020-03-07] MEDS ORDERED: INFLUENZA QUAD (6MOS+) 2020-21 VAC 0.5 ML SYR IM ONE (08:00)
[2020-03-07] MEDS: INSULIN LISPRO 100 UNIT/ML 3 ML VIAL SUBCUT SCH ×7 (08:14→22:18)
[2020-03-07] MEDS: DEXAMETHASONE SOD PHOSPHATE INJ 4 MG/1 ML VIAL IV SCH (09:52)
[2020-03-07] MEDS: CHOLECALCIFEROL (D3) 1,000 UNIT (25 MCG) TABLET PO SCH (09:53)
[2020-03-07] MEDS: ASCORBIC ACID 500 MG TABLET PO SCH ×2 (09:53→17:34)
[2020-03-07] MEDS: FAMOTIDINE 20 MG TABLET PO SCH ×2 (09:53→22:22)
[2020-03-07] MEDS: ZINC SULFATE 220 MG CAPSULE PO SCH (09:53)
[2020-03-07] MEDS: HYDROCHLOROTHIAZIDE 12.5 MG TABLET PO SCH (09:54)
[2020-03-07] MEDS: INSULIN GLARGINE,HUM.REC.ANLOG 1,000 UNIT/10 ML VIAL SUBCUT SCH ×2 (09:54→22:17)
[2020-03-07] MEDS ORDERED: LISINOPRIL 10 MG TABLET PO SCH (10:00)
[2020-03-07] MEDS: REMDESIVIR (EUA) 100 MG in NORMAL SALINE 250 ML IV SCH (10:41)
--- NOTE | 2020-03-07 16:05 | PDOC PROGRESS REPORT ---
Subjective Date:: 03/07/20 Subjective:: RUDY PEPPER is a 60 year old female, past medical history of diabetes, high blood pressure, hypothyroidism, who came to the ED today due to generalized body ache. Symptoms started about 2 to 3 days prior to admission with generalized body ache. She denied any chest pain, shortness of breath, palpitations. No loss of sense of smell and taste. Minimal cough. Persistence of generalized body ache prompted consult. In the emergency room she was noted to be saturating to 91% on room air and drops to below 88% with ambulation. CBC was unremarkable, CMP showed a sodium of 129 glucose of 454, ferritin 539 which is high, CRP 76.4 which is high, troponin 0.0 16. EKG sinus rhythm no ST elevation. Chest CT showed diffuse bilateral peripheral alveolar airspace disease suspicious for viral pneumonia, no pulmonary emboli. Patient was given IV fluids, dexamethasone, antibiotics in the ED and hospitalist service was called for admission and further management. D2 hospital stay. Patient was seen and examined at bedside. She reports she feels much better today compared to yesterday, has less body aches. She denies feeling short of breath, minimal cough, no chest pain, no nausea or vomiting. A1c noted to be 14%. I have increased her Lantus to twice daily and also started her on a with meals insulin on top of sliding scale. She is eating and drinking fine. She would prefer to get discharged tomorrow once the Covid result is back. D3 hospital stay. Patient was seen and examined at bedside. No new complains but feels sob when she walks. I tried taking her off O2 but she drops to 85% without it. COVID test pending. On abx and ceftriaxone. Otherwise she denies any chest pain, minimal cough. D4 hospital stay. Patient was seen and examined at bedside. Feels comfortable overall, still on 2L NC saturating 93%. She was started on remdesivir. I have increased her long acting and sliding scale and with meals insulin. She is afebrile with good appetite. I asked her if she wants me to update any of her family member regarding her hospital stay but she has asked me not to at this time because she was able to talk to them. D5 hospital stay. Patient was seen and examined. Doing well overall. I decreased her O2 down to 2L per minute. She is on D2 of Remdesivir. BG more acceptable with current insulin dose. She denies any chest pain or SOB. She has good appetite Reason For Visit: HYPOXIC RESPIRATORY FAILURE DUE TO PROBABLE COVID Physical Exam Vital Signs: Temp Pulse Resp BP Pulse Ox 98.1 F 65 18 144/72 H 90 L 03/07/20 11:30 03/07/20 14:00 03/07/20 11:30 03/07/20 11:30 03/07/20 11:30 Intake & Output 03/06/20 03/07/20 03/08/20 06:59 06:59 06:59 Intake Total 3647 1470 250 Balance 3647 1470 250 Weight 86.9 kg 89.2 kg General appearance: PRESENT: cooperative, mild distress Head exam: PRESENT: atraumatic, normocephalic Eye exam: PRESENT: EOMI, PERRLA Mouth exam: PRESENT: moist Neck exam: PRESENT: full ROM Respiratory exam: PRESENT: clear to auscultation libertad, symmetrical, unlabored Cardiovascular exam: PRESENT: RRR, +S1, +S2 Pulses: PRESENT: +2 pedal pulses bilateral GI/Abdominal exam: PRESENT: normal bowel sounds, soft. ABSENT: rebound, tenderness Extremities exam: PRESENT: full ROM Musculoskeletal exam: PRESENT: full ROM Neurological exam: PRESENT: alert, awake, oriented to person, oriented to place, oriented to time, oriented to situation Psychiatric exam: PRESENT: normal mood Skin exam: PRESENT: normal color Results Laboratory Results: 03/06/20 11:25 03/06/20 11:25 03/03/20 12:05 Blood Blood Culture (PCR) - Final Staphylococcus Species 03/03/20 12:05 Blood Blood Culture - Final Staphylococcus Hominis 03/03/20 05:16 Troponin I 0.016 NT-Pro-B Natriuret Pep 38 Impressions: Chest X-Ray 03/03/20 10:19 IMPRESSION: Probable mild vascular congestion although this could represent interstitial pneumonitis. Chest/Abdomen CTA 03/03/20 11:10 IMPRESSION: Diffuse bilateral peripheral alveolar airspace disease suspicious for viral pneumonia as described above. No pulmonary emboli. Assessment and Plan - Diagnosis (1) Acute respiratory failure with hypoxia Is this a current diagnosis for this admission?: Yes Plan: -Noted to be saturating 91% on room air in the emergency room -Chest CT showing bilateral groundglass opacities consistent with viral pneumoni a -Covid test POSITIVE -wean O2 support as tolerated -DuoNebs as needed (2) Suspected COVID-19 virus infection Is this a current diagnosis for this admission?: Yes Plan: -Patient came in with generalized body ache - CTA chest showed bilateral groundglass opacities suspicious for Covid pneumonia -Also noted to be hypoxic in the ED -COVID positive - on remdesivir d2 -stopped antibiotics, she was briefly on rocephin and azithro -DuoNebs as needed -Vitamin C, vitamin D, zinc (3) Type 2 diabetes mellitus with hyperglycemia Qualifiers: Diabetes mellitus 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 -No polyuria no polydipsia no polyphagia -Received 10 units of regular insulin in the ED -Trace ketones in urine - A1C 14 -Normal anion gap -Started on Lantus, with meals insulin and sliding scale insulin -Accu-Cheks -Glycemia protocol -She would need long acting insulin at home - senior health educator ordered (4) HTN (hypertension) Qualifiers: Hypertension type: essential hypertension Qualified Code(s): I10 - Essential (primary) hypertension Is this a current diagnosis for this admission?: Yes Plan: -BP145/81 - resumed lisinopril , HCTZ added (5) Hypothyroidism Qualifiers: Hypothyroidism type: unspecified Qualified Code(s): E03.9 - Hypothyroidism, unspecified Is this a current diagnosis for this admission?: Yes Plan: - resumed levothyroxine (6) HLD (hyperlipidemia) Qualifiers: Hyperlipidemia type: unspecified Qualified Code(s): E78.5 - Hyperlipidemia, unspecified Is this a current diagnosis for this admission?: Yes Plan: - resumed lipitor - Time Time Spent with patient: 25-34 minutes Medications reviewed and adjusted accordingly: Yes Anticipated Discharge Disposition: Home, Self Care Anticipated Discharge Timeframe: TBD
[2020-03-07] MEDS ORDERED: PANTOPRAZOLE SODIUM 40 MG TABLET.DR PO SCH (22:00)
[2020-03-08] MEDS: LEVOTHYROXINE SODIUM 0.1 MG TABLET PO SCH (05:08)
[2020-03-08] MEDS: HEPARIN SOD (PORCINE) 5,000 UNIT/ML 1 ML VIAL SUBCUT SCH ×3 (05:08→21:44)
[2020-03-08] MEDS: MORPHINE SULFATE 10 MG/ML INJ IV PRN (08:07)
[2020-03-08] MEDS: INSULIN LISPRO 100 UNIT/ML 3 ML VIAL SUBCUT SCH ×7 (08:07→21:45)
[2020-03-08] MEDS: ASCORBIC ACID 500 MG TABLET PO SCH ×2 (10:18→17:06)
[2020-03-08] MEDS: FAMOTIDINE 20 MG TABLET PO SCH ×2 (10:18→21:45)
[2020-03-08] MEDS: CHOLECALCIFEROL (D3) 1,000 UNIT (25 MCG) TABLET PO SCH (10:18)
[2020-03-08] MEDS: ZINC SULFATE 220 MG CAPSULE PO SCH (10:18)
[2020-03-08] MEDS: DEXAMETHASONE SOD PHOSPHATE INJ 4 MG/1 ML VIAL IV SCH (10:18)
[2020-03-08] MEDS: INSULIN GLARGINE,HUM.REC.ANLOG 1,000 UNIT/10 ML VIAL SUBCUT SCH ×2 (10:18→21:45)
[2020-03-08] MEDS: HYDROCHLOROTHIAZIDE 12.5 MG TABLET PO SCH (10:19)
[2020-03-08] MEDS: LISINOPRIL 10 MG TABLET PO SCH (10:19)
[2020-03-08] MEDS: REMDESIVIR (EUA) 100 MG in NORMAL SALINE 250 ML IV SCH (11:21)
--- NOTE | 2020-03-08 12:47 | PDOC PROGRESS REPORT ---
Subjective Date:: 03/08/20 Subjective:: Patient breathing is improved. She is currently on day 3 today of remdesivir. She should complete her remdesivir dose tomorrow. If she remains stable she she will be able to be discharged in another day or 2. Reason For Visit: HYPOXIC RESPIRATORY FAILURE DUE TO PROBABLE COVID Physical Exam Vital Signs: Temp Pulse Resp BP Pulse Ox 97.9 F 65 18 145/75 H 88 L 03/08/20 11:17 03/08/20 11:17 03/08/20 11:17 03/08/20 11:17 03/08/20 11:17 Intake & Output 03/07/20 03/08/20 03/09/20 06:59 06:59 06:59 Intake Total 1470 510 250 Balance 1470 510 250 Weight 89.2 kg 90 kg General appearance: PRESENT: no acute distress Head exam: PRESENT: atraumatic Eye exam: PRESENT: conjunctiva pink, EOMI. ABSENT: scleral icterus Mouth exam: PRESENT: moist, tongue midline Neck exam: ABSENT: carotid bruit, JVD, lymphadenopathy, thyromegaly Respiratory exam: PRESENT: clear to auscultation libertad, rhonchi. ABSENT: rales, wheezes Cardiovascular exam: PRESENT: RRR. ABSENT: diastolic murmur, rubs, systolic murmur Pulses: PRESENT: normal dorsalis pedis pul Vascular exam: PRESENT: normal capillary refill GI/Abdominal exam: PRESENT: normal bowel sounds, soft. ABSENT: distended, guarding, mass, organolmegaly, rebound, tenderness Rectal exam: PRESENT: deferred Extremities exam: PRESENT: full ROM. ABSENT: calf tenderness, clubbing, pedal edema Neurological exam: PRESENT: alert, awake, oriented to person, oriented to place, oriented to time, oriented to situation, CN II-XII grossly intact. ABSENT: motor sensory deficit Psychiatric exam: PRESENT: appropriate affect, normal mood. ABSENT: homicidal ideation, suicidal ideation Skin exam: PRESENT: dry, intact, warm. ABSENT: cyanosis, rash Results Laboratory Results: 03/06/20 11:25 03/06/20 11:25 03/03/20 05:16 Troponin I 0.016 NT-Pro-B Natriuret Pep 38 Impressions: Chest X-Ray 03/03/20 10:19 IMPRESSION: Probable mild vascular congestion although this could represent interstitial pneumonitis. Chest/Abdomen CTA 03/03/20 11:10 IMPRESSION: Diffuse bilateral peripheral alveolar airspace disease suspicious for viral pneumonia as described above. No pulmonary emboli. Assessment and Plan - Diagnosis (1) Acute respiratory failure with hypoxia Is this a current diagnosis for this admission?: Yes Plan: -Noted to be saturating 91% on room air in the emergency room -Chest CT showing bilateral groundglass opacities consistent with viral pneumonia -Covid test POSITIVE -wean O2 support as tolerated -DuoNebs as needed Continue oxygen support and remdesivir (2) Pneumonia due to COVID-19 virus Is this a current diagnosis for this admission?: Yes Plan: Patient has Covid pneumonitis. She appears to be improving though and her oxygenation has stabilized. - Plan Summary Summary: Plan to finish the course of remdesivir and possibly discharge home if she remains stable - Time Time Spent with patient: 15-24 minutes Medications reviewed and adjusted accordingly: Yes Anticipated Discharge Disposition: Home, Self Care Anticipated Discharge Timeframe: within 48 hours
[2020-03-09] MEDS: HEPARIN SOD (PORCINE) 5,000 UNIT/ML 1 ML VIAL SUBCUT SCH ×3 (05:15→21:34)
[2020-03-09] MEDS: LEVOTHYROXINE SODIUM 0.1 MG TABLET PO SCH (05:15)
[2020-03-09] MEDS: INSULIN LISPRO 100 UNIT/ML 3 ML VIAL SUBCUT SCH ×7 (08:19→21:36)
[2020-03-09] MEDS: DEXAMETHASONE SOD PHOSPHATE INJ 4 MG/1 ML VIAL IV SCH (10:28)
[2020-03-09] MEDS: FAMOTIDINE 20 MG TABLET PO SCH ×2 (10:29→21:35)
[2020-03-09] MEDS: HYDROCHLOROTHIAZIDE 12.5 MG TABLET PO SCH (10:29)
[2020-03-09] MEDS: CHOLECALCIFEROL (D3) 1,000 UNIT (25 MCG) TABLET PO SCH (10:29)
[2020-03-09] MEDS: REMDESIVIR (EUA) 100 MG in NORMAL SALINE 250 ML IV SCH (10:35)
[2020-03-09] MEDS: INSULIN GLARGINE,HUM.REC.ANLOG 1,000 UNIT/10 ML VIAL SUBCUT SCH ×2 (10:35→21:44)
[2020-03-09] MEDS: LISINOPRIL 10 MG TABLET PO SCH (10:35)
[2020-03-09] MEDS: ZINC SULFATE 220 MG CAPSULE PO SCH (10:35)
[2020-03-09] MEDS: ASCORBIC ACID 500 MG TABLET PO SCH ×2 (10:35→17:38)
--- NOTE | 2020-03-09 13:48 | PDOC PROGRESS REPORT ---
Subjective Date:: 03/09/20 Subjective:: Patient breathing is improved. She is currently on day 4 today of remdesivir. She should complete her remdesivir dose tomorrow. If she remains stable she she will be able to be discharged hopefully in am Reason For Visit: HYPOXIC RESPIRATORY FAILURE DUE TO PROBABLE COVID Physical Exam Vital Signs: Temp Pulse Resp BP Pulse Ox 98.2 F 58 L 19 124/63 95 03/09/20 10:00 03/09/20 08:00 03/09/20 08:00 03/09/20 08:00 03/09/20 08:00 Intake & Output 03/08/20 03/09/20 03/10/20 06:59 06:59 06:59 Intake Total 510 1336 Balance 510 1336 Weight 90 kg 90 kg General appearance: PRESENT: no acute distress, well-developed, well-nourished Head exam: PRESENT: atraumatic, normocephalic Eye exam: PRESENT: conjunctiva pink, EOMI, PERRLA. ABSENT: scleral icterus Ear exam: PRESENT: normal external ear exam Mouth exam: PRESENT: moist, tongue midline Neck exam: ABSENT: carotid bruit, JVD, lymphadenopathy, thyromegaly Respiratory exam: PRESENT: clear to auscultation [place]. ABSENT: rales, rhonchi, wheezes Cardiovascular exam: PRESENT: RRR, +S1, +S2. ABSENT: diastolic murmur, rubs, systolic murmur Pulses: PRESENT: normal dorsalis pedis pul Vascular exam: PRESENT: normal capillary refill GI/Abdominal exam: PRESENT: normal bowel sounds, soft. ABSENT: distended, guarding, mass, organolmegaly, rebound, tenderness Rectal exam: PRESENT: deferred Extremities exam: PRESENT: full ROM. ABSENT: calf tenderness, clubbing, pedal edema Neurological exam: PRESENT: alert, awake, oriented to person, oriented to place, oriented to time, oriented to situation, CN II-XII grossly intact. ABSENT: motor sensory deficit Psychiatric exam: PRESENT: appropriate affect, normal mood. ABSENT: homicidal ideation, suicidal ideation Skin exam: PRESENT: dry, intact, warm. ABSENT: cyanosis, rash Results Laboratory Results: 03/06/20 11:25 03/06/20 11:25 03/03/20 13:30 Blood Blood Culture - Final NO GROWTH IN 5 DAYS 03/03/20 05:16 Troponin I 0.016 NT-Pro-B Natriuret Pep 38 Impressions: Chest X-Ray 03/03/20 10:19 IMPRESSION: Probable mild vascular congestion although this could represent interstitial pneumonitis. Chest/Abdomen CTA 03/03/20 11:10 IMPRESSION: Diffuse bilateral peripheral alveolar airspace disease suspicious for viral pneumonia as described above. No pulmonary emboli. Assessment and Plan - Diagnosis (1) Acute respiratory failure with hypoxia Is this a current diagnosis for this admission?: Yes (2) Pneumonia due to COVID-19 virus Is this a current diagnosis for this admission?: Yes - Plan Summary Summary: Plan to finish the course of remdesivir and possibly discharge home if she remains stable 03/09 patient continues to remain on room air and she appears to be improving. Her last dose of remdesivir will be in a.m. and I believe she can be discharged after that as she has remained relatively stable - Time Time Spent with patient: 15-24 minutes Medications reviewed and adjusted accordingly: Yes Anticipated Discharge Disposition: Home, Self Care Anticipated Discharge Timeframe: within 24 hours
[2020-03-10] MEDS: HEPARIN SOD (PORCINE) 5,000 UNIT/ML 1 ML VIAL SUBCUT SCH (05:23)
[2020-03-10] MEDS: LEVOTHYROXINE SODIUM 0.1 MG TABLET PO SCH (05:23)
[2020-03-10] MEDS: INSULIN LISPRO 100 UNIT/ML 3 ML VIAL SUBCUT SCH ×2 (08:01→08:02)
[2020-03-10] MEDS: CHOLECALCIFEROL (D3) 1,000 UNIT (25 MCG) TABLET PO SCH (10:06)
[2020-03-10] MEDS: FAMOTIDINE 20 MG TABLET PO SCH (10:06)
[2020-03-10] MEDS: INSULIN GLARGINE,HUM.REC.ANLOG 1,000 UNIT/10 ML VIAL SUBCUT SCH (10:06)
[2020-03-10] MEDS: ZINC SULFATE 220 MG CAPSULE PO SCH (10:06)
[2020-03-10] MEDS: HYDROCHLOROTHIAZIDE 12.5 MG TABLET PO SCH (10:06)
[2020-03-10] MEDS: ASCORBIC ACID 500 MG TABLET PO SCH (10:07)
[2020-03-10] MEDS: REMDESIVIR (EUA) 100 MG in NORMAL SALINE 250 ML IV SCH (10:07)
[2020-03-10] MEDS: DEXAMETHASONE SOD PHOSPHATE INJ 4 MG/1 ML VIAL IV SCH (10:08)
[2020-03-10] MEDS: LISINOPRIL 10 MG TABLET PO SCH (10:08)
--- NOTE | 2020-03-10 10:51 | PDOC DISCHARGE SUMMARY ---
Impression - Admit/DC Date/PCP Admission Date/Primary Care Provider: 03/04/20 17:18 BHAVIN LI MD Discharge Date: 03/10/20 - Discharge Diagnosis (1) Acute respiratory failure with hypoxia Is this a current diagnosis for this admission?: Yes (2) Pneumonia due to COVID-19 virus Is this a current diagnosis for this admission?: Yes (3) HLD (hyperlipidemia) Is this a current diagnosis for this admission?: Yes (4) HTN (hypertension) Is this a current diagnosis for this admission?: Yes (5) Type 2 diabetes mellitus with hyperglycemia Is this a current diagnosis for this admission?: Yes - Additional Information Resuscitation Status: Full Code Discharge Diet: Diabetic Discharge Activity: Activity As Tolerated Referrals: BHAVIN LI MD [Primary Care Provider] - Follow up as needed Prescriptions: Insulin Admin. Supplies [Autopen] 1 each SQ ASDIR PRN #10 insuln.pen PRN Reason: Hydrochlorothiazide [Hydrodiuril 25 mg Tablet] 25 mg PO QAM #30 tablet Insulin Glargine,Hum.rec.anlog [Lantus Insulin 100 Unit/mL Insulin Pen] 25 unit SUBCUT Q12 #10 ml Lisinopril [Prinivil 10 mg Tablet] 20 mg PO DAILY #30 tablet Home Medications: Levothyroxine Sodium [Synthroid 0.1 mg Tablet] 0.1 mg PO Q6AM 03/03/20 Methocarbamol [Robaxin 500 mg Tablet] 500 mg PO BIDP PRN 03/03/20 Multivitamin [Tab-A-Kasia (Multiple Vitamin) Tablet] 1 tab PO DAILY 03/03/20 Sertraline HCl [Zoloft 50 mg Tablet] 50 mg PO DAILY 03/03/20 Acetaminophen [Tylenol 325 mg Tablet] 650 mg PO Q4HP PRN tablet 03/10/20 Hydrochlorothiazide [Hydrodiuril 25 mg Tablet] 25 mg PO QAM #30 tablet 03/10/20 Insulin Admin. Supplies [Autopen] 1 each SQ ASDIR PRN #10 insuln.pen 03/10/20 Insulin Glargine,Hum.rec.anlog [Lantus Insulin 100 Unit/mL Insulin Pen] 25 unit SUBCUT Q12 #10 ml 03/10/20 Lisinopril [Prinivil 10 mg Tablet] 20 mg PO DAILY #30 tablet 03/10/20 Zinc Sulfate [Zinc-220 Capsule] 220 mg PO DAILY capsule 03/10/20 History of Present Illiness History of Present Illness: RUDY PEPPER is a 60 year old female Patient was admitted with difficulty breathing and shortness of breath. She was found to have diffuse bilateral peripheral alveolar airspace disease suspicious for viral pneumonia. Patient tested positive for Covid and 19 with presumptive Covid pneumonitis. She was admitted for further managemenPt. Hospital Course Hospital Course: Patient was admitted with difficulty breathing and shortness of breath. She was found to have diffuse bilateral peripheral alveolar airspace disease suspicious for viral pneumonia. Patient tested positive for Covid and 19 with presumptive Covid pneumonitis. She was admitted for further management. Patient was started on intravenous dexamethasone which she received throughout her hospital stay. She also received a 5 days of remdesivir the last dose of which is today. She was initially hypoxemic but patient has actually been relatively stable over the last 72 hours with her oxygen improving and with no need for supplemental oxygen. Her initial glucose was 454 with hyperglycemia likely exacerbated with acute infection. Patient was started on insulin. Her blood sugar became better controlled while in hospital on insulin and so she is being discharged home on insulin. I recommend follow-up of her hypoglycemic agents as outpatient She has otherwise remained hemodynamically stable. She has been ambulatory without any oxygen and at this time she is stable for discharge so she is being discharged home Physical Exam Vital Signs: Temp Pulse Resp BP Pulse Ox 97.9 F 68 17 113/55 L 93 03/10/20 07:15 03/10/20 07:15 03/10/20 07:15 03/10/20 07:15 03/10/20 07:15 Intake & Output 03/09/20 03/10/20 03/11/20 06:59 06:59 06:59 Intake Total 1336 1213 Output Total 150 Balance 1336 1063 Weight 90 kg 84.4 kg General appearance: PRESENT: no acute distress, well-developed, well-nourished Head exam: PRESENT: atraumatic, normocephalic Eye exam: PRESENT: conjunctiva pink, EOMI, PERRLA. ABSENT: scleral icterus Ear exam: PRESENT: normal external ear exam Mouth exam: PRESENT: moist, tongue midline Neck exam: ABSENT: carotid bruit, JVD, lymphadenopathy, thyromegaly Respiratory exam: PRESENT: clear to auscultation [place]. ABSENT: rales, rhonchi, wheezes Cardiovascular exam: PRESENT: RRR, +S1, +S2. ABSENT: diastolic murmur, rubs, systolic murmur Pulses: PRESENT: normal dorsalis pedis pul Vascular exam: PRESENT: normal capillary refill GI/Abdominal exam: PRESENT: normal bowel sounds, soft. ABSENT: distended, guarding, mass, organolmegaly, rebound, tenderness Rectal exam: PRESENT: deferred Extremities exam: PRESENT: full ROM. ABSENT: calf tenderness, clubbing, pedal edema Neurological exam: PRESENT: alert, awake, oriented to person, oriented to place, oriented to time, oriented to situation, CN II-XII grossly intact. ABSENT: motor sensory deficit Psychiatric exam: PRESENT: appropriate affect, normal mood. ABSENT: homicidal ideation, suicidal ideation Skin exam: PRESENT: dry, intact, warm. ABSENT: cyanosis, rash Results Laboratory Results: WBC 8.1 10^3/uL (4.0-10.5) 03/06/20 11:25 RBC 4.32 10^6/uL (3.72-5.28) 03/06/20 11:25 Hgb 13.1 g/dL (12.0-15.5) 03/06/20 11:25 Hct 38.4 % (36.0-47.0) 03/06/20 11:25 MCV 89 fl (80-97) 03/06/20 11:25 MCH 30.3 pg (27.0-33.4) 03/06/20 11:25 MCHC 34.1 g/dL (32.0-36.0) 03/06/20 11:25 RDW 14.0 % (11.5-14.0) 03/06/20 11:25 Plt Count 347 10^3/uL (150-450) 03/06/20 11:25 Lymph % (Auto) 14.5 % (13-45) 03/06/20 11:25 [place] % (Auto) 7.5 % (3-13) 03/06/20 11:25 Eos % (Auto) 0.0 % (0-6) 03/06/20 11:25 Baso % (Auto) 0.3 % (0-2) 03/06/20 11:25 Absolute Neuts (auto) 6.3 10^3/uL (1.7-8.2) 03/06/20 11:25 Absolute Lymphs (auto) 1.2 10^3/uL (0.5-4.7) 03/06/20 11:25 Absolute Monos (auto) 0.6 10^3/uL (0.1-1.4) 03/06/20 11:25 Absolute Eos (auto) 0.0 10^3/uL (0.0-0.6) 03/06/20 11:25 Absolute Basos (auto) 0.0 10^3/uL (0.0-0.2) 03/06/20 11:25 Seg Neutrophils % 77.7 % (42-78) 03/06/20 11:25 D-Dimer 0.46 ug/mL (0.00-0.50) 03/03/20 12:05 Carbonic Acid 1.19 mmol/L (1.05-1.35) 03/03/20 13:51 HCO3/H2CO3 Ratio 19:1 03/03/20 13:51 ABG pH 7.39 (7.35-7.45) 03/03/20 13:51 ABG pCO2 39.5 mmHg (35-45) 03/03/20 13:51 ABG pO2 73.1 mmHg (80-100) L 03/03/20 13:51 ABG HCO3 23.3 mmol/L (20-24) 03/03/20 13:51 ABG Total CO2 24.5 mmol/L (21-25) 03/03/20 13:51 ABG O2 Saturation 94.6 % (94-98) 03/03/20 13:51 ABG Base Excess -1.4 mmol/L 03/03/20 13:51 FiO2 2L 03/03/20 13:51 Sodium 134.1 mmol/L (137-145) L 03/06/20 11:25 Potassium 4.1 mmol/L (3.6-5.0) 03/06/20 11:25 Chloride 99 mmol/L (98-107) 03/06/20 11:25 Carbon Dioxide 25 mmol/L (22-30) 03/06/20 11:25 Anion Gap 10 (5-19) 03/06/20 11:25 BUN 12 mg/dL (7-20) 03/06/20 11:25 Creatinine 0.55 mg/dL (0.52-1.25) 03/06/20 11:25 Est GFR ( Amer) > 60 (>60) 03/06/20 11:25 Est GFR (MDRD) Non-Af > 60 (>60) 03/06/20 11:25 Glucose 269 mg/dL (75-110) H 03/06/20 11:25 POC Glucose 174 mg/dL (70-110) H 03/10/20 07:16 Hemoglobin A1c % > 14.0 % (4.7-6.0) H 03/03/20 18:46 Calcium 9.6 mg/dL (8.4-10.2) 03/06/20 11:25 Ferritin 628.00 ng/mL (11.1-264.0) H 03/03/20 18:46 Total Bilirubin 0.3 mg/dL (0.2-1.3) 03/06/20 11:25 Direct Bilirubin 0.1 mg/dL (0.0-0.4) 03/06/20 11:25 Neonat Total Bilirubin Not Reportable 03/06/20 11:25 Neonat Direct Bilirubin Not Reportable 03/06/20 11:25 Neonat Indirect Bili Not Reportable 03/06/20 11:25 AST 34 U/L (14-36) 03/06/20 11:25 ALT 22 U/L (<35) 03/06/20 11:25 Alkaline Phosphatase 113 U/L (38-126) 03/06/20 11:25 Lactate Dehydrogenase 309 U/L (120-246) H 03/03/20 12:05 Troponin I 0.016 ng/mL 03/03/20 05:16 C-Reactive Protein 75.3 mg/L (<10.0) H 03/03/20 18:46 NT-Pro-B Natriuret Pep 38 pg/mL (<125) 03/03/20 05:16 Total Protein 7.3 g/dL (6.3-8.2) 03/06/20 11:25 Albumin 3.8 g/dL (3.5-5.0) 03/06/20 11:25 Lipase 48.3 U/L (23-300) 03/03/20 05:16 Urine Color YELLOW 03/03/20 05:16 Urine Appearance CLEAR 03/03/20 05:16 Urine pH 5.0 (5.0-9.0) 03/03/20 05:16 Ur Specific [place] 1.032 03/03/20 05:16 Urine Protein 100 mg/dL (NEGATIVE) H 03/03/20 05:16 Urine Glucose (UA) >=500 mg/dL (NEGATIVE) H 03/03/20 05:16 Urine Ketones TRACE mg/dL (NEGATIVE) H 03/03/20 05:16 Urine Blood NEGATIVE (NEGATIVE) 03/03/20 05:16 Urine Nitrite NEGATIVE (NEGATIVE) 03/03/20 05:16 Urine Bilirubin NEGATIVE (NEGATIVE) 03/03/20 05:16 Urine Urobilinogen NEGATIVE mg/dL (<2.0) 03/03/20 05:16 Ur Leukocyte Esterase NEGATIVE (NEGATIVE) 03/03/20 05:16 Urine WBC (Auto) 0 /HPF 03/03/20 05:16 Urine RBC (Auto) 0 /HPF 03/03/20 05:16 Squamous Epi Cells Auto <1 /HPF 03/03/20 05:16 Urine Mucus (Auto) RARE /LPF 03/03/20 05:16 Urine Ascorbic Acid NEGATIVE (NEGATIVE) 03/03/20 05:16 COVID-19 Source See comment 03/03/20 11:43 COVID-19 (HAZEL) DETECTED (Not Detect) A 03/03/20 11:43 Influenza A (Rapid) NEGATIVE (NEGATIVE) 03/04/20 07:25 Influenza B (Rapid) NEGATIVE (NEGATIVE) 03/04/20 07:25 03/03/20 05:16 Troponin I 0.016 NT-Pro-B Natriuret Pep 38 Impressions: Chest X-Ray 03/03/20 10:19 IMPRESSION: Probable mild vascular congestion although this could represent interstitial pneumonitis. Chest/Abdomen CTA 03/03/20 11:10 IMPRESSION: Diffuse bilateral peripheral alveolar airspace disease suspicious for viral pneumonia as described above. No pulmonary emboli. Stroke Is this a Stroke Patient?: No Acute Heart Failure Is this a Heart Failure Patient?: No
[2020-03-10 11:16] VITALS: BP 145/90
== END 2020-03-10 13:19 | disposition home or self-care (01) | DRG 177 ==
LOC: ER 03:28 → EH 15:52 → 3W 21:22 → OBSVTOIN 03-04 17:18
PROVIDERS: ADMIT Internal Medicine; ATTEND Internal Medicine
PROC: XW033E5 Introduction of Remdesivir Anti-infective into Peripheral Vein, Percutaneous Approach, New Technology Group 5 (ICD-10-PCS; principal; 2020-03-06)
PROC: 3E0234Z Introduction of Serum, Toxoid and Vaccine into Muscle, Percutaneous Approach (ICD-10-PCS; 2020-03-10)
DX: U07.1 COVID-19 (principal); J12.89 Other viral pneumonia; J96.01 Acute respiratory failure with hypoxia; E11.65 Type 2 diabetes mellitus with hyperglycemia; I10 Essential (primary) hypertension; E78.5 Hyperlipidemia, unspecified; E03.9 Hypothyroidism, unspecified; Z79.890 Hormone replacement therapy; Z79.84 Long term (current) use of oral hypoglycemic drugs; Z79.899 Other long term (current) drug therapy; Z23 Encounter for immunization
CPT/HCPCS: 36415; 71045; 71275; 80053; 81001; 82728; 82803; 82962; 83036; 83615; 83690; 83880; 84484; 85025; 85379; 86140; 87040; 87077; 87150; 87186; 87635; 87804; 90471; 90686; 93005; 93010; 96361; 96374; 96375; 99285; C9803; G0008; G0378; J0696; J1100; J1644; J1815; J2270; J2405; J3490; J7030; J7040; J7050